=== PATIENT | female | born 1940 | race Caucasian/White ===

== ENCOUNTER 2018-04-21 05:54 | Emergency (ER) | payer MEDICARE, OTHER ==
--- NOTE | 2018-04-21 06:25 | ED Physician Documentation ---
PD HPI LOWER EXT INJURY - Stated complaint Stated Complaint: R/L KNEE PAIN - Chief complaint Chief Complaint: Ext Problem - History obtained from History obtained from: Patient - History of Present Illness PD HPI LOW EXT INJURY LOCATION: Left, Knee Type of injury: No: Fall, Twist (she had been doing gardening last week and had pain at medial knees, more to the left. It improved couple days and is hurting again the past couple of days. No particular injury. No redness.) Where injury occurred: Home Timing - onset: How many days ago (last few days) Timing - duration: Days Timing - details: Gradual onset, Still present, Waxing and waning Worsened by: Moving (walking on leg and pivotal movement hurts medial knee.), Palpating Review of Systems Constitutional: denies: Fever, Chills Skin: denies: Rash, Lesions Musculoskeletal: denies: Extremity swelling Neurologic: denies: Focal weakness, Numbness PD PAST MEDICAL HISTORY - Past Medical History Past Medical History: Yes Cardiovascular: Hypertension Musculoskeletal: Osteoarthritis, Osteoporosis - Past Surgical History Ortho: Knee replacement - Present Medications Home Medications: Ambulatory Orders Medication Instructions Recorded Confirmed Amlodipine Besylate [Norvasc] 1 tab PO DAILY 04/21/18 04/21/18 Atorvastatin [Lipitor] 40 mg PO DAILY 04/21/18 04/21/18 Hydrocodone/Acetaminophen [[place] 1 each PO Q6H PRN #20 tablet 04/21/18 5-325 Tablet] RX: Metoprolol Tartrate 1 tab PO BID 04/21/18 04/21/18 RX: Naproxen 375 mg PO BID #20 tablet 04/21/18 RX: Quinapril HCl 1 tab PO BID 04/21/18 04/21/18 hydroCHLOROthiazide 1 tab PO BID 04/21/18 04/21/18 [Hydrochlorothiazide] - Allergies Allergies/Adverse Reactions: Allergies Allergy/AdvReac Type Severity Reaction Status Date / Time omeprazole [From Prilosec] Allergy Itching Verified 04/21/18 06:04 - Social History Does the pt smoke?: No Smoking Status: Never smoker Does the pt drink ETOH?: Yes ETOH Use: Wine Does the pt have substance abuse?: No - Immunizations Immunizations: TDAP current <10years - POLST Patient has POLST: No PD ED PE NORMAL - Vitals Vital signs reviewed: Yes - General General: Alert and oriented X 3, No acute distress, Well developed/nourished - Back Back: No spinal TTP - Derm Derm: Normal color, Warm and dry, No rash - Extremities Extremities: Other (left knee with tenderness along medial joint line. No effusion. Gross testing of ligaments did not show cruciate pain nor laxity. Valg us stress just a little caused pain medially. No obvious laxity though could not really put stress to it due to discomfort and guarding. ) - Neuro Neuro: Alert and oriented X 3, No motor deficit, No sensory deficit, Normal speech Results - Vitals Vitals: Vital Signs - 24 hr 04/21/18 04/21/18 06:00 07:34 Temperature 36.2 C L Heart Rate 68 64 Respiratory 16 16 Rate Blood Pressure 147/88 H 136/80 H O2 Saturation 97 99 Oxygen O2 Source Room air PD MEDICAL DECISION MAKING - ED course Complexity details: considered differential (Presume MCL strain. Has tenderness medial knee. Not tender in thigh nor back, so does not seem dermatomal per se. ), d/w patient Departure - Departure Disposition: 01 Home, Self Care Clinical Impression: Left knee pain Qualifiers: Chronicity: acute Qualified Code(s): M25.562 - Pain in left knee Knee MCL sprain Qualifiers: Encounter type: initial encounter Laterality: left Qualified Code(s): S83.412A - Sprain of medial collateral ligament of left knee, initial encounter Condition: Stable Record reviewed to determine appropriate education?: Yes Instructions: ED Sprain Knee Collateral Ligaments Follow-Up: [facility] [Provider Group] Prescriptions: Hydrocodone/Acetaminophen [[place] 5-325 Tablet] 1 each PO Q6H PRN #20 tablet PRN Reason: Pain RX: Naproxen 375 mg PO BID #20 tablet Comments: The mechanism of the pain along with the location and precipitating maneuvers suggest a irritation of the collateral ligament on the inside of the knee. Possibly could have some cartilage inflammation of the knee but seems more likely the MCL. For this we could treated with a knee brace when up and around over the next week or so. Use of naproxen anti-inflammatory twice daily for a week as well and take it with food. To that add Tylenol or hydrocodone if needed for pains. Follow-up with orthopedics in the next several days to week or so, call for an appointment. Discharge Date/Time: 04/21/18 07:36
[2018-04-21] MEDS ORDERED: NAPROXEN 250 MG TABLET PO STA (06:57)
[2018-04-21] MEDS ORDERED: HYDROcod/ACETAM 5/325 MG TABLET PO STA (06:57)
[2018-04-21 07:35] VITALS: BP 136/80
== END 2018-04-21 07:36 | disposition home or self-care (01) ==
LOC: ED 05:54
DX: S83.412A Sprain of medial collateral ligament of left knee, initial encounter (principal); X50.9XXA Other and unspecified overexertion or strenuous movements or postures, initial encounter; Y93.H2 Activity, gardening and landscaping; Y92.007 Garden or yard of unspecified non-institutional (private) residence as the place of occurrence of the external cause; M81.0 Age-related osteoporosis without current pathological fracture; Z96.659 Presence of unspecified artificial knee joint; I10 Essential (primary) hypertension
CPT/HCPCS: 99283; A9270

== ENCOUNTER 2019-01-05 04:43 | Emergency (ER) | payer MEDICARE, OTHER ==
[2019-01-05] MEDS ORDERED: HYDROmorphone 1 MG/ML CARPUJECT IVP STA (05:17)
[2019-01-05] MEDS ORDERED: SODIUM CHLORIDE 0.9% 1,000 ML IV ONE (05:17)
[2019-01-05] MEDS ORDERED: ONDANSETRON 4 MG/2 ML VIAL IVP STA (05:18)
[2019-01-05] MEDS: KETOROLAC 15 MG/ML VIAL IVP STA ×2 (05:41→05:45)
--- NOTE | 2019-01-05 05:58 | XRAY Report ---
Reason: chest pain Procedure Date: 01/05/2019 Accession Number: [id number] / [id number] Procedure: XR - Chest 1 View X-Ray CPT Code: 29650 FULL RESULT: EXAM: CHEST RADIOGRAPHY EXAM DATE: 01/05/2019 05:47 AM. CLINICAL HISTORY: Chest pain. COMPARISON: None. TECHNIQUE: 1 view. FINDINGS: Lungs/Pleura: No alveolar consolidation or pleural effusion seen. No pneumothorax. Mediastinum: Within exam limitations, heart size is normal. Aortic atherosclerosis. Other: Postoperative changes in the lumbar spine. IMPRESSION: 1. No acute abnormality seen in the chest. RADIA
[2019-01-05 06:16] LABS: ALBUMIN 3.6 g/dL (3.2-5.5); ALBUMIN/GLOBULIN RATIO 1.1 (1.0-2.2); BASOPHILS % (AUTO) 0.3 %; CALCIUM 9.9 mg/dL (8.5-10.3); CREATININE 1.2 mg/dL (0.4-1.0); EOSINOPHILS # (AUTO) 0.1 10^3/uL (0.0-0.7); EOSINOPHILS % (AUTO) 1.2 %; LYMPHOCYTES # (AUTO) 1.8 10^3/uL (1.5-3.5); MAGNESIUM 1.3 mg/dL (1.7-2.8); MEAN CORPUSCULAR HGB CONC 32.4 g/dL (32.0-36.0); MEAN CORPUSCULAR VOLUME 89.7 fL (81.0-99.0); MEAN PLATELET VOLUME 10.9 fL (7.9-10.8); MONOCYTES # (AUTO) 1.1 10^3/uL (0.0-1.0); MONOCYTES % (AUTO) 8.9 %; NEUTROPHILS # (AUTO) 8.8 10^3/uL (1.5-6.6); NEUTROPHILS % (AUTO) 73.9 %; PLT - PLATELET COUNT 260 10^3/uL (130-450); RED BLOOD COUNT 3.79 10^6/uL (4.20-5.40); RED CELL DISTRIBUTION WIDTH 13.6 % (12.0-15.0); TOTAL PROTEIN 6.8 g/dL (6.7-8.2); WHITE BLOOD COUNT 11.9 x10^3/uL (4.8-10.8)
[2019-01-05] MEDS ORDERED: DEXAMETHASONE 10 MG/ML VIAL IVP STA (06:23)
[2019-01-05 07:01] LABS: BILIRUBIN,URINE NEGATIVE (NEGATIVE); GLUCOSE, URINE (UA) NEGATIVE (NEGATIVE); KETONES,URINE (UA) NEGATIVE (NEGATIVE); LEUKOCYTE ESTERASE, URINE TRACE (NEGATIVE); NITRITE,URINE NEGATIVE (NEGATIVE); OCCULT BLOOD,URINE NEGATIVE (NEGATIVE); PROTEIN,URINE NEGATIVE (NEGATIVE); UROBILINOGEN,URINE 0.2 (NORMAL) E.U./dL (NORMAL)
[2019-01-05 07:05] LABS: CLARITY,URINE CLEAR (CLEAR)
[2019-01-05 07:06] LABS: BACTERIA,URINE Rare /HPF (None Seen); RBC,URINE None Seen /HPF (0-5); SQUAMOUS EPITHELIAL CELL,UR MOD Squamous (<= Few)
--- NOTE | 2019-01-05 07:31 | ED Physician Documentation ---
PD HPI BACK PAIN - Stated complaint Stated Complaint: BODY PX - Chief complaint Chief Complaint: General - History obtained from History obtained from: Patient - History of Present Illness Timing - onset: How many hours ago (She is status post lumbar surgery last week at the and had been home doing well with oral Dilaudid medications and hydrating. Overnight the last few hours she has had a feeling of increased pain in the low back despite the oral Dilaudid and also a general feeling of muscle aches and shakiness. She is concerned about infection. She has not noticed any cough wheezing or trouble urinating. They did do a dressing change yesterday and did not see any signs of infection at the wound.) Timing - duration: Hours Timing - details: Abrupt onset, Still present Location: Lower Quality: Pain. No: Tearing, Aching Associated symptoms: Other (feeling of muscles aches generally and shakiness.). No: Fever, Weakness, Numbness, Incontinent of urine Recently seen: Surgery (back surgery last week at .) Review of Systems Constitutional: reports: Chills (the past few hours), Myalgias, Fatigue. denies: Fever Nose: reports: Rhinorrhea / runny nose, Congestion Throat: reports: Sore throat Cardiac: denies: Chest pain / pressure, Palpitations, Pedal edema, Calf pain Respiratory: denies: Dyspnea, Cough, Wheezing : denies: Dysuria, Frequency Skin: denies: Rash, Lesions Neurologic: reports: Generalized weakness. denies: Focal weakness, Difficulty speaking, Altered mental status, Headache Immunocompromised: denies: Immunocompromised PD PAST MEDICAL HISTORY - Past Medical History Past Medical History: Yes Cardiovascular: Hypertension Respiratory: None Neuro: None Endocrine/Autoimmune: None GI: None FINE ARTS MODEL: None : None HEENT: None Psych: None Musculoskeletal: Osteoarthritis, Osteoporosis Derm: None - Past Surgical History Past Surgical History: Yes Ortho: Knee replacement, Other - Present Medications Home Medications: Ambulatory Orders Medication Instructions Recorded Confirmed Amlodipine Besylate [Norvasc] 1 tab PO DAILY 04/21/18 04/21/18 Atorvastatin [Lipitor] 40 mg PO DAILY 04/21/18 04/21/18 Hydrocodone/Acetaminophen [[place] 1 each PO Q6H PRN #20 tablet 04/21/18 5-325 Tablet] Metoprolol Tartrate 1 tab PO BID 04/21/18 04/21/18 Naproxen 375 mg PO BID #20 tablet 04/21/18 Quinapril HCl 1 tab PO BID 04/21/18 04/21/18 hydroCHLOROthiazide 1 tab PO BID 04/21/18 04/21/18 [Hydrochlorothiazide] Gabapentin 100 mg PO TID #20 capsule 01/05/19 HYDROmorphone [Dilaudid] 2 mg PO Q4-6H PRN #20 tablet 01/05/19 dexAMETHasone [Decadron] 4 mg PO DAILY #5 tablet 01/05/19 - Allergies Allergies/Adverse Reactions: Allergies Allergy/AdvReac Type Severity Reaction Status Date / Time omeprazole [From Prilosec] Allergy Itching Verified 01/05/19 04:57 - Social History Does the pt smoke?: No Smoking Status: Never smoker Does the pt drink ETOH?: Yes Does the pt have substance abuse?: No - Immunizations Immunizations are current?: Yes Immunizations: TDAP current <10years - POLST Patient has POLST: No PD ED PE NORMAL - Vitals Vital signs reviewed: Yes - General General: Alert and oriented X 3, Well developed/nourished, Other (she does seem in pain due to low back. Also general shakiness of extremities. Alert and conversant. ) - HEENT HEENT: Moist mucous membranes, Pharynx benign - Neck Neck: Supple, no meningeal sign, No adenopathy - Cardiac Cardiac: RRR (mild tachycardia), No murmur - Respiratory Respiratory: Clear bilaterally - Abdomen Abdomen: Normal bowel sounds, Soft, Non tender - Back Back: No CVA TTP, Other (The lumbar surgical wound is clean and dry without any redness purulence or swelling. No signs of infection.) - Derm Derm: Normal color, Warm and dry - Extremities Extremities: No deformity, No tenderness to palpate, Normal ROM s pain, No edema, No calf tenderness / cord - Neuro Neuro: Alert and oriented X 3, No motor deficit, No sensory deficit, Normal speech Eye Opening: Spontaneous Motor: Obeys Commands Verbal: Oriented GCS Score: 15 - Psych Psych: Normal mood Results - Vitals Vitals: Vital Signs - 24 hr 01/05/19 01/05/19 01/05/19 04:53 05:46 06:07 Temperature 36.6 C Heart Rate 106 H 83 71 Respiratory 17 18 16 Rate Blood Pressure 134/83 H 143/92 H 149/77 H O2 Saturation 100 99 100 01/05/19 06:31 Temperature Heart Rate Respiratory 17 Rate Blood Pressure O2 Saturation Oxygen O2 Source Nasal cannula - Labs Labs: Laboratory Tests 01/05/19 01/05/19 01/05/19 05:40 05:40 05:40 WBC 11.9 H RBC 3.79 L Hgb 11.0 L Hct 34.0 L MCV 89.7 MCH 29.0 MCHC 32.4 RDW 13.6 Plt Count 260 MPV 10.9 H Neut # (Auto) 8.8 H Lymph # (Auto) 1.8 [place] # (Auto) 1.1 H Eos # (Auto) 0.1 Baso # (Auto) 0.0 Absolute Nucleated RBC 0.00 Nucleated RBC % 0.0 Sodium 131 L Potassium 4.0 Chloride 92 L Carbon Dioxide 27 Anion Gap 12.0 BUN 13 Creatinine 1.2 H Estimated GFR (MDRD) 44 L Glucose 99 Lactic Acid 1.4 Calcium 9.9 Magnesium 1.3 L Total Bilirubin 1.0 AST 27 ALT 11 Alkaline Phosphatase 52 Total Protein 6.8 Albumin 3.6 Globulin 3.2 Albumin/Globulin Ratio 1.1 Lipase 29 Urine Color Urine Clarity Urine pH Ur Specific [place] Urine Protein Urine Glucose (UA) Urine Ketones Urine Occult Blood Urine Nitrite Urine Bilirubin Urine Urobilinogen Ur Leukocyte Esterase Urine RBC Urine WBC Ur Squamous Epith Cells Urine Bacteria Ur Microscopic Review Urine Culture Comments 01/05/19 05:40 WBC RBC Hgb Hct MCV MCH MCHC RDW Plt Count MPV Neut # (Auto) Lymph # (Auto) [place] # (Auto) Eos # (Auto) Baso # (Auto) Absolute Nucleated RBC Nucleated RBC % Sodium Potassium Chloride Carbon Dioxide Anion Gap BUN Creatinine Estimated GFR (MDRD) Glucose Lactic Acid Calcium Magnesium Total Bilirubin AST ALT Alkaline Phosphatase Total Protein Albumin Globulin Albumin/Globulin Ratio Lipase Urine Color YELLOW Urine Clarity CLEAR Urine pH 7.0 Ur Specific [place] 1.010 Urine Protein NEGATIVE Urine Glucose (UA) NEGATIVE Urine Ketones NEGATIVE Urine Occult Blood NEGATIVE Urine Nitrite NEGATIVE Urine Bilirubin NEGATIVE Urine Urobilinogen 0.2 (NORMAL) Ur Leukocyte Esterase TRACE H Urine RBC None Seen Urine WBC 0-3 Ur Squamous Epith Cells MOD Squamous H Urine Bacteria Rare Ur Microscopic Review INDICATED Urine Culture Comments NOT INDICATED - Rads (name of study) chest xray Radiology: Prelim report reviewed (no acute process), See rad report PD MEDICAL DECISION MAKING - ED course Complexity details: re-evaluated patient (She is feeling much better with some IV fluids as well as pain medication. We did add a dose of steroid for potential of adrenal insufficiency after getting back the normal lactate and normal labs and urine. She is feeling much improved.), considered differential (Concern for infection and will check chest x-ray the blood counts lactate and urine. Can also check electrolytes as well for sugar abnormalities or electrolyte imbalance. She had been on steroids prior to surgery and in the hospital as well but not discharged on any so could consider some adrenal insufficiency.), d/w patient Departure - Departure Disposition: Home, Self Care Clinical Impression: Postoperative back pain, Shakiness Condition: Stable Record reviewed to determine appropriate education?: Yes Follow-Up: Leonora Pena ARNP [Primary Care Provider] - Prescriptions: dexAMETHasone [Decadron] 4 mg PO DAILY #5 tablet Gabapentin 100 mg PO TID #20 capsule HYDROmorphone [Dilaudid] 2 mg PO Q4-6H PRN #20 tablet PRN Reason: Pain Comments: There are no signs of sepsis or infection at this time. Your basic chemistries are normal. The lactate is normal. Your white count is minimally elevated and you are slightly anemic. Your symptoms could represent some mild adrenal insufficiency. Take Decadron steroid daily for the next 5 days. Continue your Dilaudid pain medicine as needed for pain. Add gabapentin 3 times daily to help with the pain as well. Recheck if worsening symptoms over the next several days. Follow-up as planned.
[2019-01-05 07:50] VITALS: BP 142/74
== END 2019-01-05 07:50 | disposition home or self-care (01) ==
LOC: ED 04:43
DX: G89.18 Other acute postprocedural pain (principal); M54.5 Low back pain; R25.1 Tremor, unspecified; R53.1 Weakness; D64.9 Anemia, unspecified; I10 Essential (primary) hypertension
CPT/HCPCS: 36415; 71045; 80053; 81001; 83605; 83690; 83735; 85025; 87040; 96361; 96374; 96375; 99284; J1170; 81003; 87086

== ENCOUNTER 2019-11-17 11:12 | Outpatient (CLI) | payer MEDICARE, OTHER ==
[2019-11-17 12:06] LABS: CALCIUM 10.4 mg/dL (8.5-10.3); CREATININE 1.3 mg/dL (0.4-1.0)
[2019-11-17 12:22] LABS: BILIRUBIN,URINE NEGATIVE (NEGATIVE); GLUCOSE, URINE (UA) NEGATIVE (NEGATIVE); KETONES,URINE (UA) NEGATIVE (NEGATIVE); LEUKOCYTE ESTERASE, URINE MODERATE (NEGATIVE); NITRITE,URINE NEGATIVE (NEGATIVE); OCCULT BLOOD,URINE NEGATIVE (NEGATIVE); PROTEIN,URINE NEGATIVE (NEGATIVE); UROBILINOGEN,URINE 0.2 (NORMAL) E.U./dL (NORMAL)
[2019-11-17 12:27] LABS: CLARITY,URINE CLEAR (CLEAR)
[2019-11-17 12:32] LABS: BACTERIA,URINE Rare /HPF (None Seen); RBC,URINE 0-5 /HPF (0-5); SQUAMOUS EPITHELIAL CELL,UR RARE Squamous (<= Few)
== END 2019-11-17 11:13 | disposition home or self-care (01) ==
LOC: LAB 11:12
PROVIDERS: ATTEND Internal Medicine
DX: N28.9 Disorder of kidney and ureter, unspecified (principal)
CPT/HCPCS: 36415; 80048; 81001; 87086

== ENCOUNTER 2019-11-24 10:18 | Outpatient (CLI) | payer MEDICARE, OTHER ==
[2019-11-24 10:44] LABS: CALCIUM 8.9 mg/dL (8.5-10.3); CREATININE 1.5 mg/dL (0.4-1.0)
== END 2019-11-24 10:19 | disposition home or self-care (01) ==
LOC: LAB 10:18
PROVIDERS: ATTEND Internal Medicine
DX: E87.1 Hypo-osmolality and hyponatremia (principal)
CPT/HCPCS: 36415; 80048

== ENCOUNTER 2022-07-15 19:30 | Emergency (ER) | payer MEDICARE, OTHER ==
[2022-07-15 20:15] VITALS: BP 146/79
[2022-07-15] MEDS ORDERED: TETANUS/DIPHTHERIA/PERTUSSIS 0.5 ML SYRINGE IM ONE (20:33)
--- NOTE | 2022-07-15 20:36 | ED Physician Documentation ---
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 She slipped and fell going up some stairs and hit her face on the stairs going up. This happened around 7 PM tonight. No loss of consciousness. She also has mild right knee pain and mild left wrist pain. PD PAST MEDICAL HISTORY - Past Medical History Cardiovascular: Hypertension Respiratory: None Neuro: None Endocrine/Autoimmune: None GI: None AUTOMATION TECHNICIAN: None : None HEENT: None Psych: None Musculoskeletal: Osteoarthritis, Osteoporosis Derm: None - Past Surgical History Past Surgical History: Yes Ortho: Knee replacement, Other - Present Medications Home Medications: Ambulatory Orders Medication Instructions Recorded Confirmed Amlodipine Besylate [Norvasc] 1 tab PO DAILY 04/21/18 07/15/22 Simvastatin [Zocor] 10 mg PO DAILY 07/15/22 07/15/22 Spironolactone [Aldactone] 25 mg PO DAILY 07/15/22 07/15/22 allopurinoL [Zyloprim] 100 mg PO UD 07/15/22 07/15/22 carvediloL [Coreg] 12.5 mg PO BID 07/15/22 07/15/22 - Allergies Allergies/Adverse Reactions: Allergies Allergy/AdvReac Type Severity Reaction Status Date / Time omeprazole [From Prilosec] Allergy Itching Verified 07/15/22 20:15 - Social History Does the pt smoke?: No Smoking Status: Never smoker Does the pt drink ETOH?: Yes Does the pt have substance abuse?: No - Immunizations Immunizations are current?: Yes Immunizations: TDAP current <10years - POLST Patient has POLST: No PD ED PE NORMAL - Vitals Vital signs reviewed: Yes - General General: Alert and oriented X 3, No acute distress - HEENT HEENT: PERRL, EOMI, Other (There is a shallow laceration in the infraorbital area measuring about 2 cm. There is underlying swelling but no tenderness. She has an early periorbital ecchymosis. No facial bony tenderness.) - Derm Derm: Normal color, Warm and dry - Extremities Extremities: Other (No tenderness or swelling of the left wrist or right knee. Full range of motion of those joints.) - Neuro Neuro: Alert and oriented X 3, No motor deficit, No sensory deficit, Normal speech Eye Opening: Spontaneous Motor: Obeys Commands Verbal: Oriented GCS Score: 15 Results - Vitals Vitals: Vital Signs - 24 hr 07/15/22 20:11 Temperature 36.4 C L Heart Rate 75 Respiratory 17 Rate Blood Pressure 146/79 H O2 Saturation 93 Oxygen O2 Source Room air - Rads (name of study) CT of the head without contrast is unremarkable Relevant Findings:: Final report received, EMP independent interpretation of test Procedures - Laceration (location) face Length in cm: 2 Wound type: Linear, Superficial Wound preparation: Irrigated copiously NS Skin layer closure: Dermabond Other: Tetanus booster given PD Medical Decision Making - ED course ED course: We discussed potential CT scanning given her age, she prefers watchful waiting at home. Tetanus is updated. However I was called into the room prior to discharge by the nurse and she was developing a bit of a headache and requested CT imaging. Departure - Departure Disposition: 01 Home, Self Care Clinical Impression: Facial laceration Qualifiers: Encounter type: initial encounter Qualified Code(s): S01.81XA - Laceration without foreign body of other part of head, initial encounter Condition: Good Record reviewed to determine appropriate education?: Yes Instructions: ED Laceration Facial Skin Glue Comments: Note for your records that you received a Tdap shot today. If you develop a headache, confusion, or other new or worsening symptoms, please return immediately for reevaluation and potential CT scanning
--- NOTE | 2022-07-15 22:19 | CT Report ---
PROCEDURE: HEAD WO INDICATIONS: Head injury TECHNIQUE: Noncontrast 4.5 mm thick angled axial sections acquired from the foramen magnum to the vertex. For r adiation dose reduction, the following was used: automated exposure control, adjustment of mA and/or kV according to patient size. COMPARISON: None. FINDINGS: Image quality: Excellent. CSF spaces: There is mild cerebral volume loss with prominence of the ventricles and sulci. Basal ci sterns are patent. There is a small left choroidal fissure cyst. Brain: No intracranial hemorrhage, mass, or mass effect. Simms-white matter interface is preserved. Skull and face: Calvarium and visualized facial bones are intact, without suspicious lesions. Sinuses: Visualized sinuses and mastoids are clear. IMPRESSION: 1. No acute intracranial abnormality. Reviewed by: Harry Avila MD on 07/15/2022 10:18 PM PDT Approved by: Harry Avila MD on 07/15/2022 10:18 PM PDT Station ID: [id number]
== END 2022-07-15 22:44 | disposition home or self-care (01) ==
LOC: ED 19:30
DX: S01.81XA Laceration without foreign body of other part of head, initial encounter (principal); W10.9XXA Fall (on) (from) unspecified stairs and steps, initial encounter; I10 Essential (primary) hypertension; Z23 Encounter for immunization; Z71.85 Encounter for immunization safety counseling
CPT/HCPCS: 12011; 90471; 99284

== ENCOUNTER 2023-11-09 15:16 | Outpatient (CLI) | payer MEDICARE, OTHER ==
[2023-11-09 15:40] LABS: CALCIUM 9.9 mg/dL (8.5-10.3); CREATININE 1.5 mg/dL (0.6-1.3)
== END 2023-11-09 15:17 | disposition home or self-care (01) ==
LOC: LAB 15:16
PROVIDERS: ATTEND Physician Assistant
DX: E87.1 Hypo-osmolality and hyponatremia (principal)
CPT/HCPCS: 36415; 80048